=== PATIENT | female | born 1985 | race Caucasian/White ===

== ENCOUNTER 2019-06-04 16:58 | Emergency (ER) | payer MEDICAID ==
[2019-06-04 17:10] VITALS: BP 123/74
--- NOTE | 2019-06-04 18:23 | ED Physician Documentation ---
History of Present Illness - Stated complaint Stated Complaint: MED REFILL - Chief complaint Chief Complaint: General - History obtained from History obtained from: Patient (33-year-old woman recently moved to the area and is here requesting refills of her psychiatric medications. She has been out of most of them for about a week and is not feeling psychotic or suicidal. She is just starting to feel more anxious and would like some help. She is tried to get a local prescriber but most of the offices are scheduling about a month out.) Review of Systems Ten Systems: 10 systems reviewed and negative PD PAST MEDICAL HISTORY - Present Medications Home Medications: Ambulatory Orders Medication Instructions Recorded Confirmed ARIPiprazole [Aripiprazole] 10 mg PO DAILY 06/04/19 06/04/19 ARIPiprazole [Aripiprazole] 10 mg PO DAILY #30 tablet 06/04/19 Gabapentin 400 mg PO TID 06/04/19 06/04/19 Venlafaxine ER [Effexor ER] 75 mg PO DAILY #30 capsule 06/04/19 Venlafaxine HCl [Venlafaxine HCl 150 mg PO DAILY 06/04/19 06/04/19 ER] Venlafaxine HCl [Venlafaxine HCl 150 mg PO DAILY #30 tab.er.24 06/04/19 ER] buPROPion HCL [Bupropion HCl] 150 mg PO BID 06/04/19 06/04/19 buPROPion [Wellbutrin Sr] 150 mg PO BID #60 tablet 06/04/19 clonazePAM [Clonazepam] 1 mg PO BID 06/04/19 06/04/19 clonazePAM [Clonazepam] 1 mg PO BID PRN #15 tablet 06/04/19 - Allergies Allergies/Adverse Reactions: Allergies Allergy/AdvReac Type Severity Reaction Status Date / Time No Known Drug Allergies Allergy Verified 06/04/19 17:10 PD ED PE NORMAL - Vitals Vital signs reviewed: Yes - General General: Alert and oriented X 3, No acute distress - HEENT HEENT: PERRL - Neuro Neuro: Alert and oriented X 3, No motor deficit, No sensory deficit, Normal speech - Psych Psych: Normal mood, Normal affect Results - Vitals Vitals: Vital Signs - 24 hr 06/04/19 17:06 Temperature 36.6 C Heart Rate 98 Respiratory 16 Rate Blood Pressure 123/74 O2 Saturation 100 Oxygen O2 Source Room air PD MEDICAL DECISION MAKING - ED course ED course: Her meds were refilled, but only a few of the clonazepam with a taper, also she did not ask me specifically for gabapentin although it was noted on her med list from the nurses chart but per policy we do not refill gabapentin from this ER. Departure - Departure Disposition: 01 Home, Self Care Clinical Impression: Psychiatric symptoms Condition: Good Record reviewed to determine appropriate education?: Yes Instructions: Anxiety Disorder Prescriptions: ARIPiprazole [Aripiprazole] 10 mg PO DAILY #30 tablet buPROPion [Wellbutrin Sr] 150 mg PO BID #60 tablet clonazePAM [Clonazepam] 1 mg PO BID PRN #15 tablet PRN Reason: Anxiety Venlafaxine ER [Effexor ER] 75 mg PO DAILY #30 capsule Venlafaxine HCl [Venlafaxine HCl ER] 150 mg PO DAILY #30 tab.er.24 Comments: Return anytime for new or worsening symptoms. It is important to follow-up with a psychiatric prescriber locally. Follow-up with [facility] at [phone] to schedule psychiatric care and counseling.
== END 2019-06-04 18:40 | disposition home or self-care (01) ==
LOC: ED 16:58
DX: Z76.0 Encounter for issue of repeat prescription (principal); F41.9 Anxiety disorder, unspecified
CPT/HCPCS: 99281; 99284

== ENCOUNTER 2019-08-27 15:53 | Emergency (ER) | payer MEDICAID ==
[2019-08-27] MEDS ORDERED: MELOXICAM 7.5 MG TABLET PO STA (16:21)
[2019-08-27] MEDS ORDERED: LIDOCAINE PATCH 5% TOP STA (16:22)
[2019-08-27] MEDS ORDERED: ALBUTEROL 1 PUFF INH STA (16:22)
--- NOTE | 2019-08-27 16:33 | ED Physician Documentation ---
History of Present Illness - Stated complaint Stated Complaint: RIB PAIN - Chief complaint Chief Complaint: General - History obtained from History obtained from: Patient - History of Present Illness Timing: How many weeks ago (2) Pain level max: 6 Pain level now: 5 - Additonal information Additional information: L rib pain x 2 weeks. Had a cough, better now. No fever. Worse with movement and better with rest. She is concerned that she may have a broken rib. No trauma. No recent surgery. No recent travel. No leg or calf swelling. Review of Systems Constitutional: denies: Fever, Chills Nose: denies: Rhinorrhea / runny nose, Congestion Cardiac: denies: Chest pain / pressure Respiratory: reports: Cough GI: denies: Vomiting, Diarrhea Skin: denies: Rash Musculoskeletal: denies: Neck pain, Back pain Neurologic: denies: Headache, Head injury PD PAST MEDICAL HISTORY - Past Medical History Past Medical History: Yes Psych: Depression, Anxiety - Past Surgical History Past Surgical History: No - Present Medications Home Medications: Ambulatory Orders Medication Instructions Recorded Confirmed ARIPiprazole [Aripiprazole] 10 mg PO DAILY 06/04/19 06/04/19 ARIPiprazole [Aripiprazole] 10 mg PO DAILY #30 tablet 06/04/19 Gabapentin 400 mg PO TID 06/04/19 06/04/19 Venlafaxine ER [Effexor ER] 75 mg PO DAILY #30 capsule 06/04/19 Venlafaxine HCl [Venlafaxine HCl 150 mg PO DAILY 06/04/19 06/04/19 ER] Venlafaxine HCl [Venlafaxine HCl 150 mg PO DAILY #30 tab.er.24 06/04/19 ER] buPROPion HCL [Bupropion HCl] 150 mg PO BID 06/04/19 06/04/19 buPROPion [Wellbutrin Sr] 150 mg PO BID #60 tablet 06/04/19 clonazePAM [Clonazepam] 1 mg PO BID 06/04/19 06/04/19 clonazePAM [Clonazepam] 1 mg PO BID PRN #15 tablet 06/04/19 Meloxicam [Mobic] 15 mg PO DAILY PRN #20 tablet 08/27/19 - Allergies Allergies/Adverse Reactions: Allergies Allergy/AdvReac Type Severity Reaction Status Date / Time No Known Drug Allergies Allergy Verified 08/27/19 16:00 - Living Situation Living Situation: reports: With family Living Arrangement: reports: At home - Social History Does the pt smoke?: Yes Smoking Status: Current every day smoker - Family History Family history: reports: Non contributory PD ED PE NORMAL - Vitals Vital signs reviewed: Yes - General General: Alert and oriented X 3, No acute distress, Well developed/nourished - HEENT HEENT: PERRL, Moist mucous membranes - Neck Neck: Supple, no meningeal sign - Cardiac Cardiac: RRR, Strong equal pulses - Respiratory Respiratory: No respiratory distress, Other (Diminished breath sounds bilaterally. No wheezing. No chest wall tenderness on either side. She points to her side on the left ribs, there is no tenderness here) - Abdomen Abdomen: Normal bowel sounds, Soft, Non tender, Non distended - Derm Derm: Warm and dry - Extremities Extremities: No edema, No calf tenderness / cord - Neuro Neuro: Alert and oriented X 3 - Psych Psych: Normal mood, Normal affect Results - Vitals Vitals: Vital Signs - 24 hr 08/27/19 08/27/19 15:58 16:39 Temperature 36 C L Heart Rate 88 88 Respiratory 18 14 Rate Blood Pressure 111/64 O2 Saturation 100 Oxygen O2 Source Room air - Rads (name of study) Left ribs with x-ray Radiology: Prelim report reviewed, EMP read contemporaneously, See rad report (Normal) PD MEDICAL DECISION MAKING - ED course Complexity details: reviewed results, re-evaluated patient, considered differential, d/w patient ED course: Patient with what appears to be pleurisy. No evidence of pulmonary embolus. No evidence of pneumothorax. No rib fracture. Feels better after meloxicam and Lidoderm patch. Albuterol inhaler did not change her symptoms much. No pneumonia. Patient is well-appearing, nontoxic. Afebrile. Patient counseled regarding signs and symptoms for which I believe and urgent re-evaluation would be necessary. Patient with good understanding of and agreement to plan and is comfortable going home at this time This document was made in part using voice recognition software. While efforts are made to proofread this document, sound alike and grammatical errors may occur. Departure - Departure Disposition: 01 Home, Self Care Clinical Impression: Pleurisy Condition: Good Instructions: ED Chest Pain Pleurisy Follow-Up: Holiday,Gely M, PA [Primary Care Provider] - Within 1 week Prescriptions: Meloxicam [Mobic] 15 mg PO DAILY PRN #20 tablet PRN Reason: pain Comments: Return if you worsen. your xray is normal today. This should improve over the next week or two.
--- NOTE | 2019-08-27 17:15 | XRAY Report ---
Reason: L rib pain x 2 weeks Procedure Date: 08/27/2019 Accession Number: [id number] / [id number] Procedure: XR - Ribs w/PA Chest LT CPT Code: Final Report FULL RESULT: EXAM: LEFT RIB RADIOGRAPHY EXAM DATE: 08/27/2019 04:53 PM. CLINICAL HISTORY: Left rib pain x 2 weeks. COMPARISON: None. TECHNIQUE: 1 view of the chest and 2 views of the ribs. FINDINGS: Bones: Normal. No fracture or bone lesion. Lungs: No focal opacities. No pneumothorax. No pleural effusions. Mediastinum: Heart and mediastinal contours are unremarkable. Other: S-shaped scoliosis. IMPRESSION: Scoliosis, otherwise unremarkable chest and rib radiography. [facility]
[2019-08-27 17:53] VITALS: BP 110/65
== END 2019-08-27 17:45 | disposition home or self-care (01) ==
LOC: ED 15:53
DX: R09.1 Pleurisy (principal); F17.200 Nicotine dependence, unspecified, uncomplicated
CPT/HCPCS: 71101; 99283; 99284; A9270

== ENCOUNTER 2020-02-26 20:34 | Emergency (ER) | payer MEDICAID ==
--- NOTE | 2020-02-26 21:56 | XRAY Report ---
PROCEDURE: Chest 1 View X-Ray INDICATIONS: cough TECHNIQUE: One view of the chest was acquired. COMPARISON: CXR 08/27/2019. FINDINGS: Surgical changes and devices: None. Lungs and pleura: No pleural effusions or pneumothorax. Lungs are clear. Mediastinum: Mediastinal contours appear normal. Heart size is normal. Bones and chest wall: No suspicious bony lesions. Mild scoliosis. Overlying soft tissues appear unre markable. IMPRESSION: No acute cardiopulmonary abnormality. Reviewed by: Alvin Porter MD on 02/26/2020 9:55 PM PST Approved by: Alvin Porter MD on 02/26/2020 9:55 PM [facility] Station ID: [id number]
--- NOTE | 2020-02-26 22:08 | ED Physician Documentation ---
History of Present Illness - Stated complaint Stated Complaint: COUGH, CHEST "POP" - Chief complaint Chief Complaint: General - History obtained from History obtained from: Patient - History of Present Illness Timing: Enter time (18:00), Today Pain level now: 4 Improved by: rest Worsened by: movement, deep inspiration - Additonal information Additional information: c/o sudden onset left-sided chest pain 6 pm tonight when coughing. She says she has had previous episodes of similar pain and was diagnosed with pleurisy. denies fever, denies feeling short of breath Review of Systems Constitutional: denies: Fever Cardiac: reports: Chest pain / pressure. denies: Palpitations, Pedal edema, Calf pain Respiratory: reports: Cough. denies: Dyspnea, Hemoptysis, Wheezing PD PAST MEDICAL HISTORY - Past Medical History Past Medical History: Yes Respiratory: Other Psych: Depression, Anxiety Other Past Medical History: pleurisy - Past Surgical History Past Surgical History: No /[employer]: section HEENT: Tonsil/Adenoidectomy - Present Medications Home Medications: Ambulatory Orders Medication Instructions Recorded Confirmed Venlafaxine HCl [Venlafaxine HCl 150 mg PO DAILY #30 tab.er.24 06/04/19 ER] clonazePAM [Clonazepam] 1 mg PO BID PRN #15 tablet 06/04/19 Lisdexamfetamine Dimesylate 70 mg PO DAILY 02/26/20 02/26/20 [Vyvanse] Propranolol [Inderal] 10 mg DAILY 02/26/20 02/26/20 buPROPion [Wellbutrin Sr] 150 mg PO DAILY 02/26/20 - Allergies Allergies/Adverse Reactions: Allergies Allergy/AdvReac Type Severity Reaction Status Date / Time No Known Drug Allergies Allergy Verified 02/26/20 20:38 - Social History Does the pt smoke?: Yes Smoking Status: Current every day smoker Does the pt drink ETOH?: No Does the pt have substance abuse?: No Substance Use and Type: Marijuana - Immunizations Immunizations are current?: Yes - POLST Patient has POLST: No PD ED PE NORMAL - Vitals Vital signs reviewed: Yes - General General: Alert and oriented X 3, No acute distress, Well developed/nourished - Cardiac Cardiac: RRR, No murmur, No gallop, No rub - Respiratory Respiratory: No respiratory distress, Clear bilaterally Results - Vitals Vitals: Vital Signs - 24 hr 02/26/20 02/26/20 02/26/20 20:38 21:03 22:44 Temperature 36.8 C 36.8 C Heart Rate 108 H 106 H 90 Respiratory 16 18 16 Rate Blood Pressure 140/90 H 114/76 124/70 O2 Saturation 100 99 100 Oxygen O2 Source Room air - Rads (name of study) chest xray Radiology: Prelim report reviewed, See rad report PD MEDICAL DECISION MAKING - ED course Complexity details: reviewed results, re-evaluated patient, considered differential, d/w patient Departure - Departure Disposition: 01 Home, Self Care Clinical Impression: Pleurisy Condition: Good Instructions: ED Chest Pain Pleurisy Follow-Up: Gely Archer PA [Primary Care Provider] - Forms: Activity restrictions Discharge Date/Time: 02/26/20 22:44
[2020-02-26] MEDS ORDERED: IBUPROFEN 800 MG TABLET PO STA (22:29)
[2020-02-26 22:48] VITALS: BP 124/70
== END 2020-02-26 22:44 | disposition home or self-care (01) ==
LOC: ED 20:34
DX: R09.1 Pleurisy (principal); F17.200 Nicotine dependence, unspecified, uncomplicated
CPT/HCPCS: 71045; 99283; A9270

== ENCOUNTER 2020-05-13 13:54 | Outpatient (CLI) | payer MEDICAID ==
--- NOTE | 2020-05-13 15:54 | Ultrasound Report ---
PROCEDURE: Pelvic w/Transvaginal INDICATIONS: IRREGULAR MENSES TECHNIQUE: Real-time scanning was performed of the pelvic organs, with image documentation. Additional endovagi nal scanning was necessary due to incomplete visualization of the adnexal and endometrial structures by transabdominal scanning. COMPARISON: None. FINDINGS: No pathologic free abdominal or pelvic fluid. Uterus: Uterus is normal in size at 9.6 x 4.4 x 5.2 cm. The uterus demonstrates a heterogeneous lobu lated appearance, yet without focal fibroids. The endometrium measures 10 mm in combined thickness. Nabothian cysts are incidentally noted. A scar can be seen. Ovaries: The right ovary measures 3 x 2.5 x 2 cm and the left ovary measures 3 x 2.3 x 2.8 cm. No si gnificant ovarian abnormalities are seen. There are more than 12 follicles seen involving each ovary . No adnexal masses are seen. IMPRESSION: The uterine size is at the upper limits of normal, with a lobulated, heterogeneous appearance. Howeve r, no focal fibroids can be seen. More than 12 follicles can be seen involving each ovary. Please consider polycystic ovarian syndrome. Reviewed by: George Valderrama MD on 05/13/2020 2:52 PM [facility] Approved by: George Valderrama MD on 05/13/2020 2:52 PM [facility] Station ID: [id number]
== END 2020-05-13 13:55 | disposition home or self-care (01) ==
LOC: DI 13:54
PROVIDERS: ATTEND Obstetrics & Gynecology
DX: N92.6 Irregular menstruation, unspecified (principal)

== ENCOUNTER 2020-06-12 08:00 | Outpatient (CLI) | payer MEDICAID | END 2020-06-12 23:59 | disposition home or self-care (01) | LOC: LAB.WCP 08:00 | PROVIDERS: ATTEND Psychiatry & Neurology Psychiatry | DX: Z79.899 Other long term (current) drug therapy (principal) | CPT/HCPCS: 80361; 80365; 81599 ==

== ENCOUNTER 2020-07-14 18:13 | Emergency (ER) | payer MEDICAID ==
[2020-07-14 18:20] VITALS: BP 136/87
--- NOTE | 2020-07-14 18:30 | ED Physician Documentation ---
History of Present Illness - Stated complaint Stated Complaint: LEFT WRIST INJURY - Chief complaint Chief Complaint: Trauma Ext - Additonal information Additional information: 34-year-old female presents the emergency department for evaluation of acute left wrist pain sustained this afternoon when she tripped over a dog gate she fell directly onto her wrist and knee. No history of previous injury to this hand or wrist. She is right-hand dominant. 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 HEENT: Tonsil/Adenoidectomy - Present Medications Home Medications: Ambulatory Orders Medication Instructions Recorded Confirmed Venlafaxine HCl [Venlafaxine HCl 150 mg PO DAILY #30 tab.er.24 06/04/19 07/14/20 ER] clonazePAM [Clonazepam] 1 mg PO BID PRN #15 tablet 06/04/19 07/14/20 Propranolol [Inderal] 10 mg PO BID 02/26/20 07/14/20 Brexpiprazole [Rexulti] 1 mg PO DAILY 07/14/20 07/14/20 Dextroamphetamine/Amphetamine 40 mg PO DAILY 07/14/20 07/14/20 [Adderall 20 mg Tablet] Venlafaxine ER [Effexor ER] 75 mg PO DAILY 07/14/20 07/14/20 - Allergies Allergies/Adverse Reactions: Allergies Allergy/AdvReac Type Severity Reaction Status Date / Time No Known Drug Allergies Allergy Verified 07/14/20 18:16 - Social History Does the pt smoke?: Yes Smoking Status: Current every day smoker Does the pt drink ETOH?: No Does the pt have substance abuse?: No - Immunizations Immunizations are current?: Yes - POLST Patient has POLST: No PD ED PE EXPANDED - General General: Alert, In Pain - Extremities Extremities: Left wrist (Positive snuffbox tenderness left wrist. Pain with passive flexion and extension of wrist. Most of the pain is on the dorsum. No deformity. 2+ radial and DP pulse.), Left hand (Significant swelling with mild ecchymosis left thenar eminence.Flexion and extension at MCP and DIP of thumb preserved.) Results - Vitals Vitals: Vital Signs - 24 hr 07/14/20 18:19 Temperature 36.8 C Heart Rate 100 Respiratory 19 Rate Blood Pressure 136/87 H O2 Saturation 100 Oxygen O2 Source Room air - Rads (name of study) left wrist XR Radiology: Final report received (No acute osseous abnormality.) left hand XR Radiology: Final report received (No acute osseous abnormality.) PD MEDICAL DECISION MAKING - ED course Complexity details: reviewed results, re-evaluated patient, d/w patient ED course: 34-year-old female presents here with acute left wrist pain after a fall at home. She has fair amount of swelling on the thenar eminence of the left hand as well as scaphoid tenderness. X-ray shows no acute abnormality. She was placed in a thumb spica splint will be advised ibuprofen and follow-up with orthopedics in 7 to 10 days for repeat imaging. Departure - Departure Disposition: 01 Home, Self Care Clinical Impression: Left wrist pain, Pain of left thumb Condition: Stable Record reviewed to determine appropriate education?: Yes Instructions: ED Contusion Upper Extr Ch Follow-Up: [facility] [Provider Group] Comments: Lashon you are seen in the emergency department today for pain in your left thumb and wrist after fall at home. The x-rays of both your hand and wrist do not show any obvious fractures. However you do have tenderness in the snuffbox area of your left wrist which can be a sign of an occult or difficult to see fracture of the scaphoid bone. Please continue to wear your wrist splint. I recommend you take ibuprofen for discomfort [id number]. Please call the orthopedics department to schedule follow-up in 7 to 10 days. If pain is improved and x-ray shows no signs of a fracture you may then likely be free of the splint.
--- NOTE | 2020-07-14 18:51 | XRAY Report ---
PROCEDURE: Wrist 4 View LT INDICATIONS: Trauma TECHNIQUE: 4 views of the wrist were acquired. COMPARISON: None FINDINGS: Bones: No fracture or dislocation. Mild negative ulnar variance which may predispose to an box diseas e. Alignment is otherwise normal. Joint spacing is maintained. Scaphoid view: No fracture. Soft tissues: No suspicious soft tissue calcifications. IMPRESSION: No acute osseous abnormality. Reviewed by: Jack Brown DO on 07/14/2020 5:49 PM [facility] Approved by: Jack Brown DO on 07/14/2020 5:49 PM [facility] Station ID: [id number]
--- NOTE | 2020-07-14 18:53 | XRAY Report ---
PROCEDURE: Hand 3 View LT INDICATIONS: fall; pain in wrist and thumb TECHNIQUE: 3 views of the hand(s) acquired. COMPARISON: Same-day wrist radiographs. FINDINGS: Bones: There is no fracture. Mild negative ulnar variance which may predispose to Keinboch's disease. Joint spacing is maintained. Soft tissues: No suspicious soft tissue calcifications. IMPRESSION: No acute osseous abnormality. Reviewed by: Jack Brown DO on 07/14/2020 5:51 PM [facility] Approved by: Jack Brown DO on 07/14/2020 5:51 PM [facility] Station ID: [id number]
== END 2020-07-14 19:29 | disposition home or self-care (01) ==
LOC: ED 18:13
DX: M25.532 Pain in left wrist (principal); M79.645 Pain in left finger(s); S60.222A Contusion of left hand, initial encounter; W01.0XXA Fall on same level from slipping, tripping and stumbling without subsequent striking against object, initial encounter; Y92.009 Unspecified place in unspecified non-institutional (private) residence as the place of occurrence of the external cause; F17.200 Nicotine dependence, unspecified, uncomplicated
CPT/HCPCS: 99282; 99283

== ENCOUNTER 2020-08-04 19:41 | Emergency (ER) | payer MEDICAID ==
[2020-08-04] MEDS ORDERED: HYDROmorphone 1 MG/ML CARPUJECT IVP STA (20:19)
[2020-08-04 20:33] LABS: BASOPHILS # (AUTO) 0.1 10^3/uL (0.0-0.1); BASOPHILS % (AUTO) 0.5 %; EOSINOPHILS # (AUTO) 0.1 10^3/uL (0.0-0.7); EOSINOPHILS % (AUTO) 1.2 %; HCT - HEMATOCRIT 43.1 % (37.0-47.0); HGB - HEMOGLOBIN 13.6 g/dL (12.0-16.0); LYMPHOCYTES # (AUTO) 2.3 10^3/uL (1.5-3.5); LYMPHOCYTES % (AUTO) 20.2 %; MEAN CORPUSCULAR HEMOGLOBIN 28.4 pg (27.0-31.0); MEAN CORPUSCULAR HGB CONC 31.6 g/dL (32.0-36.0); MEAN PLATELET VOLUME 9.9 fL (7.9-10.8); MONOCYTES # (AUTO) 1.1 10^3/uL (0.0-1.0); MONOCYTES % (AUTO) 9.1 %; NEUTROPHILS % (AUTO) 68.7 %; PLT - PLATELET COUNT 428 10^3/uL (130-450); RED BLOOD COUNT 4.79 10^6/uL (4.20-5.40); RED CELL DISTRIBUTION WIDTH 14.5 % (12.0-15.0); WHITE BLOOD COUNT 11.6 x10^3/uL (4.8-10.8)
[2020-08-04 20:34] LABS: BILIRUBIN,URINE NEGATIVE (NEGATIVE); GLUCOSE, URINE (UA) NEGATIVE (NEGATIVE); KETONES,URINE (UA) NEGATIVE (NEGATIVE); LEUKOCYTE ESTERASE, URINE NEGATIVE (NEGATIVE); NITRITE,URINE NEGATIVE (NEGATIVE); OCCULT BLOOD,URINE TRACE-INTA (NEGATIVE); PROTEIN,URINE NEGATIVE (NEGATIVE); UROBILINOGEN,URINE 0.2 (NORMAL) E.U./dL (NORMAL)
[2020-08-04 20:36] LABS: CLARITY,URINE CLEAR (CLEAR); HCG UR QUAL NEGATIVE
[2020-08-04] MEDS ORDERED: IOPAMIDOL-300 100 ML VIAL ONE (20:37)
[2020-08-04 20:43] LABS: CALCIUM 9.8 mg/dL (8.5-10.3); CREATININE 0.7 mg/dL (0.4-1.0); POTASSIUM 3.2 mmol/L (3.5-5.0)
--- NOTE | 2020-08-04 20:45 | ED Physician Documentation ---
History of Present Illness - Stated complaint Stated Complaint: RT SIDE RIB PX - Chief complaint Chief Complaint: General - Additonal information Additional information: 34-year-old female presents emergency department for now 3 days of right lateral rib wall pain, pain in the posterior back as well as the right flank. She states that she feels like a rib is out of place. When she coughs she feels a popping in her chest. She denies any recent falls or trauma. She was seen at [facility] yesterday for similar had a chest x-ray completed that she was told was unremarkable and diagnosed with pleurisy. Since then every time she c oughs she has severe pain that is unrelenting. She was unable to work today due to the pain. She has taken Excedrin without relief of the symptoms. She is also attempted smoking cannabis. Patient is a daily tobacco user but denies any ongoing coughs fevers hemoptysis or sputum production. Review of Systems Constitutional: denies: Fever, Chills Eyes: reports: Reviewed and negative Ears: reports: Reviewed and negative Nose: reports: Reviewed and negative Throat: reports: Reviewed and negative Cardiac: reports: Other (right rib wall pain) Respiratory: reports: Cough. denies: Dyspnea, Hemoptysis, Wheezing GI: reports: Abdominal Pain. denies: Nausea, Vomiting : denies: Dysuria, Frequency, Hematuria Skin: denies: Rash, Lesions PD PAST MEDICAL HISTORY - Past Medical History Past Medical History: Yes Respiratory: Other Psych: Depression, Anxiety, ADD/ADHD - Past Surgical History Past Surgical History: Yes /[employer]: section HEENT: Tonsil/Adenoidectomy - Present Medications Home Medications: Ambulatory Orders Medication Instructions Recorded Confirmed Venlafaxine HCl [Venlafaxine HCl 150 mg PO DAILY #30 tab.er.24 06/04/19 08/04/20 ER] clonazePAM [Clonazepam] 1 mg PO BID PRN #15 tablet 06/04/19 08/04/20 Propranolol [Inderal] 10 mg PO BID 02/26/20 08/04/20 Brexpiprazole [Rexulti] 1 mg PO DAILY 07/14/20 08/04/20 Dextroamphetamine/Amphetamine 50 mg PO DAILY 07/14/20 08/04/20 [Adderall 20 mg Tablet] Venlafaxine ER [Effexor ER] 75 mg PO DAILY 07/14/20 08/04/20 HYDROcod/ACETAM 5/325 [[place] 5/325] 1 - 2 tablet PO Q6H PRN #10 tablet 08/04/20 Ibuprofen [Motrin] 600 mg PO Q6H PRN #30 tab 08/04/20 Methocarbamol [Robaxin-750] 750 mg PO TID PRN #30 tablet 08/04/20 - Allergies Allergies/Adverse Reactions: Allergies Allergy/AdvReac Type Severity Reaction Status Date / Time No Known Drug Allergies Allergy Verified 08/04/20 19:48 - Social History Does the pt smoke?: Yes Smoking Status: Current every day smoker Does the pt drink ETOH?: No Does the pt have substance abuse?: Yes Substance Use and Type: Marijuana - Immunizations Immunizations are current?: Yes - POLST Patient has POLST: No PD ED PE EXPANDED - General General: Alert, In Pain - Cardiac Cardiac: Regular Rate, Radial strong equal, Pedal strong equal, Cap refill < 2 sec - Respiratory Respiratory: Clear to ausultation gera. No: Distress, Labored - Abdomen Abdomen: Normal Bowel sounds, Tender to palpation, Other (Right flank/CVA tenderness) - Back Back: CVA TTP right, Other (right lateral chest wall tenderness). No: Vertebral tenderness, Soft tissue tenderness - Extremities Extremities: Normal. No: Deformity, Tenderness Results - Vitals Vitals: Vital Signs - 24 hr 08/04/20 08/04/20 19:48 20:04 Temperature 36.5 C Heart Rate 122 H 94 Respiratory 18 18 Rate Blood Pressure 133/90 H 140/100 H O2 Saturation 100 100 Oxygen O2 Source Room air - Labs Labs: Laboratory Tests 08/04/20 08/04/20 08/04/20 20:25 20:30 20:30 WBC 11.6 H RBC 4.79 Hgb 13.6 Hct 43.1 MCV 90.0 MCH 28.4 MCHC 31.6 L RDW 14.5 Plt Count 428 MPV 9.9 Neut # (Auto) 8.0 H Lymph # (Auto) 2.3 Gooding # (Auto) 1.1 H Eos # (Auto) 0.1 Baso # (Auto) 0.1 Absolute Nucleated RBC 0.00 Nucleated RBC % 0.0 Sodium 138 Potassium 3.2 L Chloride 101 Carbon Dioxide 27 Anion Gap 10.0 BUN 8 Creatinine 0.7 Estimated GFR (MDRD) 97 Glucose 82 Calcium 9.8 Urine Color YELLOW Urine Clarity CLEAR Urine pH 6.0 Ur Specific [place] 1.025 Urine Protein NEGATIVE Urine Glucose (UA) NEGATIVE Urine Ketones NEGATIVE Urine Occult Blood TRACE-INTA Urine Nitrite NEGATIVE Urine Bilirubin NEGATIVE Urine Urobilinogen 0.2 (NORMAL) Ur Leukocyte Esterase NEGATIVE Ur Microscopic Review NOT INDICATED Urine Culture Comments NOT INDICATED Urine HCG, Qual NEGATIVE - Rads (name of study) XR right ribs with PA Radiology: Final report received (Lungs appear clear. No displaced rib fractures identified.Effusions or pneumothorax.) CT abdomen w Radiology: Final report received (Also nephrolithiasis or obstructive uropathy. Nondistention of the descending and proximal sigmoid colon with slight wall thickening. The findings are suggestive of mild infectious or inflammatory colitis. No evidence of appendicitis.) PD MEDICAL DECISION MAKING - ED course Complexity details: reviewed results, re-evaluated patient, d/w patient ED course: 34-year-old female presents emergency department for evaluation of recurrent right rib wall pain. She had similar presentation 1 year ago this episode began about 3 days ago. She feels a popping sensation and movement in her ribs when she takes a deep breath she has no cough fevers or hemoptysis. Chest x-ray reveals no findings consistent with pneumonia or pneumothorax. Rib series also revealed no obviously displaced fractures. The pain is reproducible and did improve somewhat following Toradol and Dilaudid administration. However she also reported right CVA tenderness as well as hematuria. Her urine shows no findings of infection or gross hematuria. A CT of the abdomen was completed And showed no findings of nephrolithiasis or obstructive uropathy. The CT scan did suggest a colitis however she has no left-sided abdominal pain complaints of dysuria fevers or diarrhea. I suspect that the patient has musculoskeletal rib pain associated with her scoliosis. I think she would likely benefit from physical therapy. Patient will be referred back to her primary care doctor to get a physical therapy referral. I will write a prescription for ibuprofen limited amount of muscle relaxer as well as hydrocodone. Emergent worrisome return precautions were discussed. Departure - Departure Disposition: 01 Home, Self Care Clinical Impression: Rib pain on right side Condition: Stable Record reviewed to determine appropriate education?: Yes Instructions: ED Chest Pain Costochondritis Follow-Up: YONY KING PA-C [Primary Care Provider] - Prescriptions: Ibuprofen [Motrin] 600 mg PO Q6H PRN #30 tab PRN Reason: Pain HYDROcod/ACETAM 5/325 [[place] 5/325] 1 - 2 tablet PO Q6H PRN #10 tablet PRN Reason: Pain Methocarbamol [Robaxin-750] 750 mg PO TID PRN #30 tablet PRN Reason: Spasms Comments: Lashon you are seen in the emergency department today for right lower rib wall pain. As we discussed the chest x-ray rib series and CT did not show any worrisome findings either with your lungs, the ribs or your kidneys. Your screening labs were essentially unremarkable. You do not have infection in your urine or blood in your urine. I suspect that you are having muscle pain between the ribs secondary to your scoliosis. In the long-term I think you would benefit from referral to physical therapy. Please discuss this with your primary care provider. In order to help manage the pain I would like you to take the ibuprofen with food 2-3 times a day. Do not take Excedrin with this medication. Do not take other NSAID medications like Aleve or naproxen sodium. I have also prescribed a muscle relaxer that I think will help you take deeper breaths. For severe pain I did prescribe a very limited amount of hydrocodone. This cannot be refilled by the emergency department. Please do not drive if taking this medication it legally intoxicated you. Return to the emergency department for shortness of air, bloody sputum fevers.
--- NOTE | 2020-08-04 21:11 | XRAY Report ---
PROCEDURE: Ribs w/PA Chest RT INDICATIONS: rib wall pain TECHNIQUE: 3 views of the right ribs were acquired, along with a single view chest. COMPARISON: Chest x-ray 02/26/2020 FINDINGS: Surgical changes and devices: None. Bones and chest wall: No displaced rib fracture identified. No suspicious bony lesions. Overlying s oft tissues appear unremarkable. Lungs and pleura: No pleural effusions or pneumothorax. Lungs appear clear. Mediastinum: Mediastinal contours appear normal. Heart size is normal. IMPRESSION: 1. No displaced rib fracture identified. Reviewed by: Chip Luz MD on 08/04/2020 9:10 PM PDT Approved by: Chip Luz MD on 08/04/2020 9:10 PM PDT Station ID: [id number]
[2020-08-04] MEDS ORDERED: IOPAMIDOL-300 100 ML VIAL IVP ONE (21:24)
[2020-08-04] MEDS ORDERED: KETOROLAC 30 MG/ML VIAL IVP STA (21:31)
[2020-08-04] MEDS ORDERED: methocarbamoL 500 MG TABLET PO STA (21:32)
--- NOTE | 2020-08-04 21:52 | CT Report ---
PROCEDURE: Abdomen/Pelvis W INDICATIONS: Right flank, CVA pain CONTRAST: IV CONTRAST: Isovue 300 ml: 100 PO CONTRAST: *NO PO CONTRAST TECHNIQUE: After the administration of intravenous contrast, 5 mm thick sections acquired from the diaphragms to the symphysis. 5 mm thick coronal and sagittal reformats were acquired. For radiation dose reducti on, the following was used: automated exposure control, adjustment of mA and/or kV according to dina ent size. COMPARISON: Pelvic ultrasound 05/13/2020. FINDINGS: Image quality: Excellent. ABDOMEN: Lung bases: There is mild dependent atelectasis bilaterally. There is a small right lower lobe pulmon long nodule measuring up to 0.3 cm on series 4 image 6. Heart size is normal. Solid organs: Evaluation of the liver demonstrates no focal hepatic lesions. Gallbladder appears wit hin normal limits without calcified gallstones. Biliary system is non dilated. The spleen is normal in size. Pancreas enhances normally without peripancreatic fat stranding or fluid collections. No ad renal nodules. Kidneys demonstrate no hydronephrosis. No perinephric stranding or fluid collections. Peritoneum and bowel: Small bowel loops demonstrate normal wall thickness and caliber. The appendix i s normal in appearance. The descending and proximal sigmoid colon are nondistended with mild wall thi ckening. The findings are suggestive of a mild infectious or inflammatory colitis. No free fluid or a ir. Nodes and vessels: No retroperitoneal or mesenteric adenopathy by size criteria. Aorta and inferior vena cava are normal in size. Miscellaneous: No ventral hernias. PELVIS: Genitourinary: Bladder wall thickness is normal. The uterus and ovaries appear within normal size li mits for age. Miscellaneous: No inguinal hernias or adenopathy. Bones: No suspicious bony lesions. No vertebral body compression fractures. IMPRESSION: 1. No evidence of nephrolithiasis or obstructive uropathy. No CT evidence of pyelonephritis. 2. Nondistention of the descending and proximal sigmoid colon with slight wall thickening. The findin gs are suggestive of a mild infectious or inflammatory colitis. 3. No evidence of appendicitis. Reviewed by: Chip Luz MD on 08/04/2020 9:51 PM PDT Approved by: Chip Luz MD on 08/04/2020 9:51 PM PDT Station ID: [id number]
[2020-08-04 22:08] VITALS: BP 125/75
== END 2020-08-04 22:09 | disposition home or self-care (01) ==
LOC: ED 19:41
DX: R07.81 Pleurodynia (principal); Z72.0 Tobacco use
CPT/HCPCS: 36415; 71101; 74177; 80048; 81003; 81025; 85025; 96374; 96375; 99284; A9270; J1170; Q9967; 81001; 87086

== ENCOUNTER 2021-02-01 16:04 | Outpatient (CLI) | payer MEDICAID ==
[2021-02-01 16:09] LABS: MUDS CUTOFF CONCENTRATIONS CUTOFF CONC BELOW:
[2021-02-01 18:31] LABS: CHOL/HDL RATIO 3.9 (<4.4); CHOLESTEROL 286 mg/dL; HDL CHOLESTEROL 73 mg/dL; LDL CHOLESTEROL,CALCULATED 150 mg/dL; LDL/HDL RATIO 2.1 (<4.4); TRIGLYCERIDES 313 mg/dL; VLDL CHOLESTEROL 63 mg/dL
[2021-02-01 19:25] LABS: COCAINE SCREEN URINE NEGATIVE (NEGATIVE); METHAMPHETAMINES SCREEN, URINE NEGATIVE (NEGATIVE); THC CANNABINOID SCREEN, URINE NEGATIVE (NEGATIVE)
[2021-02-01 19:26] LABS: AMPHETAMINE SCREEN,URINE POSITIVE (NEGATIVE); BARBITURATE SCREEN,UR NEGATIVE (NEGATIVE); BENZODIAZEPINES SCREEN, URINE NEGATIVE (NEGATIVE); METHADONE SCREEN, URINE NEGATIVE (NEGATIVE); OPIATE SCREEN, URINE NEGATIVE (NEGATIVE); OXYCODONE SCREEN, URINE NEGATIVE (NEGATIVE); PROPOXYPHENE SCREEN, URINE NEGATIVE (NEGATIVE); TRICYCLIC ANTIDEPRESSANT,URINE NEGATIVE (NEGATIVE)
== END 2021-02-01 16:05 | disposition home or self-care (01) ==
LOC: LAB.N 16:04
PROVIDERS: ATTEND Psychiatry & Neurology Psychiatry
DX: Z79.899 Other long term (current) drug therapy (principal)
CPT/HCPCS: 36415; 80061; 80306; 83721